=== PATIENT | female | born 1980 | race Hispanic/Latino ===

== ENCOUNTER 2017-11-07 19:50 | Emergency (ER) | payer MEDICAID, OTHER ==
[2017-11-07] MEDS ORDERED: LIDOCAINE HCL-MPF 1% 2ML VIAL ONE (20:17)
[2017-11-07] MEDS ORDERED: DEXAMETHASONE SOD PHOSPHATE 10MG/ML 1ML VIAL ONE (20:17)
[2017-11-07] MEDS ORDERED: CEFTRIAXONE SODIUM 1 GM ONE (20:18)
== END 2017-11-07 20:34 | disposition home or self-care (01) ==
LOC: EDH 19:50
DX: T63.301A Toxic effect of unspecified spider venom, accidental (unintentional), initial encounter (principal); Z88.0 Allergy status to penicillin; Z72.0 Tobacco use; Y92.89 Other specified places as the place of occurrence of the external cause
CPT/HCPCS: 96372 ×2; 99284; J0696; J1100; J3490